=== PATIENT | male | born 1970 | race Caucasian/White ===

== ENCOUNTER 2019-10-26 03:11 | Emergency (ER) | payer OTHER, SELFPAY ==
[2019-10-26 03:12] VITALS: BP 169/93; PULSE 61; RESP 18; TEMP 36.7; O2SAT 93; BMI 31.6
--- NOTE | 2019-10-26 04:10 | ED.VIS.BACK ---
History of Present Illness Chief Complaint: Back Informant: Patient Onset: Days - 11 Context: Gradual Onset Timing: Continuous Quality: Sharp, Aching Location: Buttock, Left Leg Associated Symptoms: Numbness, Radiation to Left Leg Narrative: Patient is a 49-year-old male with history of diabetes and neuropathy presenting with worsening back pain. He states that the pain is in his left lower back and radiates down his left leg. He states it radiates behind his thigh and then down to his and foot. He notes he does have some paresthesias and numbness of his left foot. He also does have a history of neuropathy. Patient is having a hard time ambulating secondary to the pain. He is been taking ibuprofen 800 mg every 6 hours at home for pain. He denies any injury. He notes he woke up with some back pain and is just been worsening since then. Patient states the pain is worse when he is working. He denies any associated fever, chills, incontinence or current numbness in his groin region. He denies any other complaints. He denies any history of sciatica, cancer or IV drug use. Past Medical History - Allergies and Home Meds Allergies/Adverse Reactions: Allergies No Known Allergies Allergy (Verified 10/26/19 03:17) Primary Care Physician: Care Physician,No Primary [Primary Care Provider] - Past Medical History: - - Hypertension, diabetes mellitus Smoking Status: Current every day smoker Review of Systems General: Denies: Chills, Fever, Sweats Eyes: Denies: Visual changes - bilaterally, Diplopia ENT: Denies: Rhinorrhea, Sore throat Cardiovascular: Denies: Chest pain, Palpitations Respiratory: Denies: Dyspnea, Cough, Dyspnea on exertion Gastrointestinal: Denies: Abdominal pain, Nausea, Vomiting, Diarrhea, Melena, Hematochezia Genitourinary: Denies: Dysuria, Hematuria, Frequency Musculoskeletal: Reports: Back pain, Extremity Pain - left Skin: Denies: Rash, Wounds Neurological: Reports: Parasthesia - left foot, lower leg . Denies: Headache, Weakness, Numbness Physical Exam Vital Signs/Narrative: Vital Signs Temp Pulse Resp BP Pulse Ox 10/26/19 03:12 98.1 F 61 18 169/93 H 93 Inital Vital Signs reviewed: Yes General: Well nourished, Well developed Head: Normocephalic, Atraumatic Eyes: Perrl, EOMI ENT: Moist mucous membranes, No rhinorrhea Neck: Supple, Nontender Cardiovascular: Regular rate, Regular rhythm, No murmurs Respiratory: No distress, CTA bilaterally, Chest nontender Abdomen: Soft, Nontender, Nondistended, Normal bowel sounds. Negative for: No masses Back: Normal Inspection, Nontender, Positive SLR - Right, Positive SLR - Left. Negative for: Spinal tenderness, Paraspinal Tenderness, CVA tenderness Extremeties: Nontender, No edema, Strong Pulses, Symmetric. Negative for: Tenderness, Edema Skin: Normal color, No rash Neuro: Alert, Oriented, Normal Strength, Normal Sensation, Normal DTR, Normal Cerebellar. Negative for: Normal Gait - Antalgic gait, Weakness - Normal hip flexion, plantar and dorsiflexion Psychological: Normal affect Diagnostic/Tx/Re-eval - Medical Decision Making Patient is evaluated for atraumatic back pain. It is in his left lower back radiates down his leg. He has positive straight leg test bilaterally. I believe this is sciatica. He does not have any midline tenderness or red flag symptoms for cauda equina syndrome. Do not think emergent MRI or other imaging is indicated at this time. As patient drove himself here he cannot receive any sedating medications. Patient has already been taking ibuprofen at home. He is a diabetic so I do not want to give him prednisone. He will be started on a course of Flexeril in case there is an associated muscle spasm contributing to his pain. Patient is agreeable with this. He is given a prescription and it is filled in our pharmacy so he can take when he gets home. Patient is counseled the typical course of sciatica and his need to follow-up with a primary care doctor. He is counseled that he ultimately might require physical therapy and an MRI ordered by his PCP. Patient is counseled on signs and symptoms requiring return to the emergency room. Patient verbalizes agreement and understand this plan. Patient discharged home in stable and improved condition. ED Disposition - Plan for ED Patient: Disposition: Home or Assisted Living Diagnosis: Sciatica of left side Instructions: BACK PAIN w/ SCIATICA Prescriptions: cycloBENZAPRine HCl [Flexeril] 10 mg PO TID PRN #20 tab PRN Reason: Muscle Spasm Prescription Printed Referrals: Care Physician,No Primary [Primary Care Provider] - Additional Instructions: Please call your PCP to be seen in the next week or 2 for further evaluation of your back pain. Is possible that this might last for 6 weeks or more. Use moist heat for your back. Return if you develop new weakness of the legs, inability to walk or incontinence. Continue to take ibuprofen but only take 3 of the 200 mg at a time. You may also add in Tylenol.
[2019-10-26 04:21] VITALS: BP 154/69; PULSE 64; RESP 18; O2SAT 98
== END 2019-10-26 04:21 | disposition home or self-care (01) ==
PROVIDERS: Emergency Provider Emergency Medicine
DX: M54.42 Lumbago with sciatica, left side (principal); E11.40 Type 2 diabetes mellitus with diabetic neuropathy, unspecified; I10 Essential (primary) hypertension; F17.200 Nicotine dependence, unspecified, uncomplicated
CPT/HCPCS: 99282

== ENCOUNTER 2020-06-09 17:29 | Observation (INO) | payer OTHER, SELFPAY ==
[2020-06-09] VITALS (7 sets, daily range): BP systolic 150–166; BP diastolic 74–94; PULSE 84–94; RESP 16–20; TEMP 36.7–36.9; O2SAT 94–97; BMI 30.5; BMI 29.6
--- NOTE | 2020-06-09 17:42 | EKG12_ITS ---
Test Reason : Blood Pressure : / mmHG Vent. Rate : 092 BPM Atrial Rate : 092 BPM P-R Int : 168 ms QRS Dur : 094 ms QT Int : 376 ms P-R-T Axes : 049 046 028 degrees QTc Int : 464 ms Normal sinus rhythm Normal ECG Confirmed by JAMAL ORTEGA, PILY ([id number]), film editor MIRIAM CAI ([id number]) on 06/11/2020 2:40:05 PM Referred By: SUDHIR Confirmed By:FREDY BERRY MD
--- NOTE | 2020-06-09 17:46 | ED.VIS.GEN ---
History of Present Illness Chief Complaint: Chest Pain Informant: Patient Narrative: Patient is a 49-year-old male with a past medical history of diabetes, hypertension, hyperlipidemia who presents to the ED for chest pain and shortness of breath. This has been intermittent over the past week and a half. He currently rates the pain as a 3 out of 10. This is a tight sensation. It does radiate into his back but not into his arms or neck. Standing as well as exerting himself does make the pain worse. He has been taking ibuprofen which has not been giving him any relief. Denies any cough, cold, congestion. He is a current every day smoker. He denies any leg swelling or calf pain. No history of DVT/PE. No history of heart attacks. No abdominal pain or nausea/vomiting. No diaphoresis. Past Medical History - Allergies and Home Meds Allergies/Adverse Reactions: Allergies No Known Allergies Allergy (Verified 06/09/20 21:24) Prior records reviewed: Yes Past Medical History: - - Diabetes, hypertension, hyperlipidemia Smoking Status: Current every day smoker Alcohol: None Drugs: None - Family History Maternal Family History: Reports: Asthma, Diabetes Paternal Family History: Reports: - - Denies knowledge of paternal medical history. Review of Systems All systems negative except as indicated General: Denies: Chills, Fever, Sweats Eyes: Denies: Visual changes - bilaterally, Diplopia ENT: Denies: Rhinorrhea, Sore throat Cardiovascular: Reports: Chest pain. Denies: Palpitations Respiratory: Reports: Dyspnea, Dyspnea on exertion. Denies: Cough Gastrointestinal: Denies: Abdominal pain, Nausea, Vomiting, Diarrhea, Melena, Hematochezia Genitourinary: Denies: Dysuria Musculoskeletal: Reports: Back pain. Denies: Extremity Pain Skin: Denies: Rash, Wounds Neurological: Denies: Headache, Weakness, Numbness Physical Exam Vital Signs/Narrative: Vital Signs Temp Pulse Resp BP Pulse Ox 06/09/20 17:30 98.0 F 91 16 166/80 H 95 Inital Vital Signs reviewed: Yes General: Well nourished, Well developed, No Acute Distress Head: Normocephalic, Atraumatic Eyes: Perrl, EOMI ENT: Moist mucous membranes, No rhinorrhea Neck: Supple, Nontender Cardiovascular: Regular rate, Regular rhythm, No murmurs, - - 2+ radial pulse Respiratory: No distress, CTA bilaterally, Chest nontender Abdomen: Soft, Nontender, Nondistended, Normal bowel sounds Back: Nontender, Normal Inspection Extremities: Nontender, No edema. Negative for: Edema, Calf Tenderness Skin: Normal color, No rash Neurological: Alert, Oriented x3, Cranial nerves II-XII grossly intact, Normal Strength, Normal Sensation Psychological: Normal affect, Normal Mood Diagnostic/Tx/Re-eval - EKG Initial EKG Interpretation: - - Rate of 92 bpm and normal sinus rhythm. Normal intervals. Normal axis. No ST elevations or depressions appreciated. No T wave abnormalities. No prior EKG for comparison. - Medical Decision Making Patient presents to the ED for chest pain and shortness of breath. This is related to exertion. Nonreproducible on physical exam. EKG not show any signs of acute ischemia or arrhythmia. Initial troponin within normal limits. No acute abnormality on chest x-ray. He does have a heart score of 4 with his risk factors, age and story. He is given a dose of aspirin here in the ED. He is agreeable to staying in the hospital for further evaluation and management. He otherwise has been stable throughout ED stay. ED Disposition - Plan for ED Patient: Disposition: Acute Care [facility] Diagnosis: Chest pain, Dyspnea
[2020-06-09] MEDS: Aspirin 81 MG TAB.CHEW 324 MG PO (18:05)
[2020-06-09 18:15] LABS: Absolute Lymphocyte Count 3.15 X10^3/uL (0.83-4.51); Basophil# 0.06 X10^3/uL; Basophil% 0.5 % (0-1); Eosinophil# 0.27 X10^3/uL; Eosinophils% 2.4 % (0-5); Hematocrit 41.2 % (40-54); Hemoglobin 14.1 g/dL (13.0-16.5); Lymphocyte # 3.15 X10^3/ul (4.0); Lymphocyte % 27.6 % (19-41); Mean Corp Hgb Conc 34.2 g/dL (32-36); Mean Corpuscular Hgb 31.6 pg (27.0-32.0); Mean Corpuscular Volume 92.4 fL (80-94); Mean Platelet Vol. 9.2 fl (6.2-12.0); Monocyte# 0.77 X10^3/uL; Monocyte% 6.7 % (0-10); NRBC Flagged by Analyzer 0 % (0-5); Neutrophil # 7.01 X10^3/uL (2.7-7.7); Neutrophil % 61.5 % (47-70); Platelet Count 402 K/mm3 (150-450); RBC Distribution Width CV 12.5 % (11.6-14.6); RBC Distribution Width SD 42.8 fl (35.1-43.9); Red Blood Count 4.46 M/mm3 (4.6-6.2); White Blood Count 11.4 K/mm3 (4.4-11.0)
--- NOTE | 2020-06-09 18:30 | RAD_ITS ---
STUDY: X-RAY CHEST REASON FOR EXAM: Male, 49 years old. SOB X 1 WEEK TECHNIQUE: 2 frontal images of the chest were obtained. COMPARISON: 09/09/2015 FINDINGS: There is no new focal consolidation. There is a stable linear opacity within the left lower lung which may reflect focal atelectasis and/or scarring. The lungs remain hyperinflated. Normal size heart. Normal mediastinum and molina. Normal visualized pulmonary arteries. Normal visualized aortic arch and descending thoracic aorta. Normal visualized thoracic spine. Normal visualized ribs, clavicles, and shoulders. There is no demonstrated abnormality of the visualized soft tissue structures of the upper abdomen. RAD/Chest 1 View (Portable) IMPRESSION: Stable examination demonstrating no acute cardiopulmonary process. Electronically Signed: Virginie Ewing MD at 19:00 EDT Tel , Service support ,
[2020-06-09 18:39] LABS: Anion Gap 6 (5-15); BUN 19 mg/dL (7-18); BUN/Creat Ratio 18.4 RATIO (10-20); Calcium,Total 8.8 mg/dL (8.5-10.1); Chloride 103 mmol/L (98-107); Creatinine, Serum 1.03 mg/dL (0.70-1.30); EST Glomerular Filtration Rate 82 mL/min (>60); Est Glom Filt Rate - Afr Amer 99 mL/min (>60); Estimated Creatinine Clearance 96.27 ml/min; Glucose 132 mg/dL (74-106); Potassium 3.7 mmol/L (3.5-5.1); Sodium Level 134 mmol/L (136-145)
--- NOTE | 2020-06-09 19:28 | HP.PCM_ITS ---
Problem List (1) Exertional chest pain Status: Acute (2) Dyspnea Status: Acute History of Present Illness Date of Admission: 06/09/20 Chief Complaint: Chest pain The patient is a 49 year old M with a significant history of tobacco abuse; hypertension; asthma; hyperlipidemia; diabetes mellitus who presents emergency department with 1-1/2-week history of chest pain. His chest pain is episodic. However on the day of presentation his chest pain was constant. His chest pain worsens with exertion and improves with sitting and lying down. 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 He chest pain radiates to his upper back. His chest pain spun across his entire chest. He denies any nausea, vomiting or diaphoresis. He reports mild shortness of breath with his chest pain. Past Medical History Medical History: Medical History (Last Reviewed 06/09/20 @ 20:[address] Dougie Merrill MD) Diabetes E11.9 Hyperlipidemia E78.5 Hypertension I10 Allergies No Known Allergies Allergy (Verified 06/09/20 17:30) Home Medications: Ambulatory Orders Medication Instructions Recorded Albuterol Inhaler [Ventolin Hfa 1 - 2 puff INHALATION Q4H PRN PRN 09/08/15 (SP)] Atorvastatin Calcium 80 mg PO DAILY 10/26/19 Gabapentin [Neurontin] 300 mg PO TID 10/26/19 Lisinopril [Prinivil] 10 mg PO DAILY 10/26/19 Metformin HCl 1,000 mg PO BID 10/26/19 Budesonide/Formoterol Fumarate 2 puff PO DAILY 06/09/20 [Symbicort 80-4.5 Mcg Inhaler] Bupropion HCl [Bupropion HCl Sr] 150 mg PO DAILY 06/09/20 Glimepiride 4 mg PO DAILY 06/09/20 Surgical History: no surgical history Smoking Status: Current every day smoker Tobacco Use: Cigarettes Alcohol: None Drugs: None - *Family History Maternal History Items: Asthma, Diabetes Paternal History Items: - - Denies knowledge of paternal medical history. Review of Systems Constitutional: Denies: Chills, Fever, Weight Change HEENT: Denies: Head Aches, Sinus Congestion, Sinus Drainage Cardiovascular: Reports: Chest Pain. Denies: Palpitations Respiratory: Reports: Shortness of Breath. Denies: Cough, Shortness of breath at rest, Sputum production Gastrointestinal: Denies: Abdominal Pain, Nausea, Vomiting Genitourinary: Denies: Dysuria Musculoskeletal: Reports: Back Pain. Denies: Joint Pain, Joint Tenderness Skin: Denies: Rash, Wounds Neurological: Denies: Numbness, Tingling, Focal weakness Psychiatric: Denies: Anxiety, Depression, Homicidal Ideations, Suicidal Ideations Hematologic/ Lymphatic: Denies: Easy Bruising, Easy Bleeding VTE Information - Inpt Only VTE Present on Admission: No VTE Mechan Device Prophylaxis: SCD's VTE Pharm Prophylaxis ordered?: No Patient Problems: Active and Suspected Problems (Last Reviewed 06/09/20 @ 20:[address] Dougie Merrill MD) Exertional chest pain (Acute) Dyspnea (Acute) - Physical Exam Vitals/I&O's: Vital Signs Temp Pulse Resp BP Pulse Ox 98.0 F 94 18 157/92 H 96 06/09/20 17:30 06/09/20 18:06 06/09/20 18:06 06/09/20 18:06 06/09/20 18:06 Oxygen Delivery Method Room Air Weight: 102.058 kg Body Mass Index (BMI) 30.5 General: Alert, Oriented x3, Cooperative HEENT: Atraumatic, PERRLA, EOMI, Normocephalic Neck: Supple, No JVD, Negative Carotid Bruits Lungs: Clear to auscultation, Normal air movement Cardiovascular: Regular rate, No murmurs Abdomen: Bowel Sounds Present, Soft, Non Tender Extremities: No edema, Capillary Refill Less than 3 Seconds Skin: No rashes, No breakdown Musculoskeletal: No Tenderness to Palpation of Joints or Extremities Neurological: Cranial nerves II-XII grossly intact Psych/Mental Status: Normal Affect, Appropriate Laboratory Results 06/09/20 17:55: WBC 11.4 H, RBC 4.46 L, Hgb 14.1, Hct 41.2, MCV 92.4, MCH 31.6, MCHC 34.2, RDW Std Deviation 42.8, RDW Coeff of Michele 12.5, Plt Count 402, MPV 9.2, Immature Gran % (Auto) 1.300 H, Neut % (Auto) 61.5, Lymph % (Auto) 27.6, [place] % (Auto) 6.7, Eos % (Auto) 2.4, Baso % (Auto) 0.5, Absolute Neuts (auto) 7.0, Absolute Lymphs (auto) 3.15, Nucleated RBC % 0 06/09/20 17:55: Sodium 134 L, Potassium 3.7, Chloride 103, Carbon Dioxide 25.0, Anion Gap 6, BUN 19 H, Creatinine 1.03, Estim Creat Clear Calc 96.27, Est GFR (MDRD) Af Amer 99, Est GFR (MDRD) Non-Af 82, BUN/Creatinine Ratio 18.4, Glucose 132 H, Calcium 8.8, Magnesium 2.0, Troponin I < 0.015 Assessment/Plan All Active Problems (Last Reviewed 06/09/20 @ 20:[address] Dougie Merrill MD) Exertional chest pain (Acute) Dyspnea (Acute) The patient is a 49 year old M with a significant history of tobacco abuse; hypertension; hyperlipidemia; diabetes mellitus who presents emergency department with 1-1/2-week history of exertional chest pain and shortness of breath. Chest pain and shortness of breath Place on a monitored bed at PCU Actual CXR image was independently visualized. No acute cardiopulmonary process was noted. Actual EKG tracing was independently visualized. EKG tracing showed sinus rhythm with no ST or T wave abnormalities. Received aspirin 324 mg at emergency department. ASA 81 mg p.o. daily ordered SL NTG 0.4 mg prn as needed for chest pain ordered Morphine as needed for pain ordered We will check lipid panel. Statin: Home 80 mg atorvastatin daily continued Initial troponin was negative. Serial cardiac enzymes ordered Stat EKG as needed for chest pain Treadmill stress test in the AM if the cardiac enzymes are negative Diabetes mellitus Patient with mild hyperglycemia on presentation. Patient will be n.p.o. for stress test. While n.p.o. we will de-escalate dose of glimepiride and put on correction scale insulin. Hold home metformin. Asthma On home ICS?lab. Therapeutic interchange with a Maddie and Pulmicort. Albuterol PRN. PRN albuterol. His shortness of breath could be due to his asthma. Patient does not appear to be in exacerbation. Neuropathy Gabapentin continued Leukocytosis Patient with mild leukocytosis; and bandemia Likely reactive Trend. DVT prophylaxis SCD while planning for cardiac work up for chest pain OBSV E&M: 32520 Initial observation care L3
--- NOTE | 2020-06-09 20:36 | ED.RN ---
PT refuses to stay in bed or keep telemetry leads on.
--- NOTE | 2020-06-09 20:57 | EKG12_ITS ---
Test Reason : CP ADMIT Blood Pressure : / mmHG Vent. Rate : 083 BPM Atrial Rate : 083 BPM P-R Int : 182 ms QRS Dur : 092 ms QT Int : 390 ms P-R-T Axes : 051 044 024 degrees QTc Int : 458 ms Normal sinus rhythm Normal ECG Confirmed by KIRAN ORTEGA, CONSUELO ([id number]), legal editor VENKAT BARBOUR ([id number]) on 06/16/2020 1:16:41 PM Referred By: NATY Confirmed By:CONSUELO BECK MD
[2020-06-09] MEDS: Acetaminophen 325 MG Tablet 650 MG PO (21:09)
[2020-06-09] MEDS: Atorvastatin Calcium 80 MG Tablet PO (21:24)
[2020-06-09] MEDS: Gabapentin 300 MG Capsule PO (21:24)
[2020-06-09 23:26] LABS: Bedside Glucose 155 mg/dL (70-110)
[2020-06-10] VITALS (9 sets, daily range): BP systolic 121–144; BP diastolic 73–89; PULSE 71–93; RESP 15–18; TEMP 36.3–36.7; O2SAT 96–98
[2020-06-10 05:57] LABS: Absolute Lymphocyte Count 3.25 X10^3/uL (0.83-4.51); Absolute Neutrophil Count 6.5 X10^3/uL (2.0-7.7); Basophil# 0.07 X10^3/uL; Basophil% 0.6 % (0-1); Eosinophil# 0.27 X10^3/uL; Eosinophils% 2.5 % (0-5); Hematocrit 43.1 % (40-54); Hemoglobin 14.6 g/dL (13.0-16.5); Lymphocyte # 3.25 X10^3/ul (4.0); Lymphocyte % 29.6 % (19-41); Mean Corp Hgb Conc 33.9 g/dL (32-36); Mean Corpuscular Hgb 31.7 pg (27.0-32.0); Mean Corpuscular Volume 93.7 fL (80-94); Mean Platelet Vol. 9.1 fl (6.2-12.0); Monocyte% 7.3 % (0-10); NRBC Flagged by Analyzer 0 % (0-5); Neutrophil # 6.46 X10^3/uL (2.7-7.7); Neutrophil % 58.9 % (47-70); Platelet Count 361 K/mm3 (150-450); RBC Distribution Width CV 12.4 % (11.6-14.6); RBC Distribution Width SD 42.7 fl (35.1-43.9)
[2020-06-10] MEDS: Acetaminophen 325 MG Tablet 650 MG PO ×2 (06:05→13:12)
[2020-06-10] MEDS: Gabapentin 300 MG Capsule PO ×2 (06:05→13:11)
[2020-06-10] MEDS: Aspirin E.C. 81 MG Tablet PO (06:05)
[2020-06-10] MEDS: Lisinopril 10 MG Tablet PO (06:05)
[2020-06-10 06:16] LABS: Bedside Glucose 155 mg/dL (70-110)
[2020-06-10 06:21] LABS: Anion Gap 6 (5-15); BUN 18 mg/dL (7-18); BUN/Creat Ratio 18.9 RATIO (10-20); Calcium,Total 8.5 mg/dL (8.5-10.1); Chloride 105 mmol/L (98-107); Cholesterol 157 mg/dL (200); Creatinine, Serum 0.95 mg/dL (0.70-1.30); EST Glomerular Filtration Rate 89 mL/min (>60); Est Glom Filt Rate - Afr Amer 108 mL/min (>60); Estimated Creatinine Clearance 104.37 ml/min; Glucose 143 mg/dL (74-106); High Density Lipoprotein 39 mg/dL; Potassium 3.9 mmol/L (3.5-5.1); Sodium Level 136 mmol/L (136-145); Triglycerides 297 mg/dL; Very Low Density Lipoprotein 59 mg/dL (5-40)
[2020-06-10] MEDS: Budesonide Respules 0.5 MG/2 ML AMPUL.NEB. INHALATION (07:17)
[2020-06-10] MEDS: Albuterol 2.5 MG/3 ML VIAL.NEB. INHALATION ×2 (07:17→13:20)
--- NOTE | 2020-06-10 09:40 | PCA ---
pt off floor
[2020-06-10] MEDS: Glimepiride 2 MG Tablet PO (09:51)
[2020-06-10] MEDS: buPROPion (XL) 150 MG TABLET.XL PO (09:51)
--- NOTE | 2020-06-10 13:21 | STRESSREP ---
Stress Test Report Date: 06/10/20 Procedure: Exercise tolerance test/imaging study Indications: [chest pain] Consent: Per the patient Procedure: The patient exercised on a Stephen protocol for [7 minutes] achieving a peak heart rate of [153] bpm ([88]% predicted maximal heart rate) with a peak blood pressure [158/62] mmHg and a peak MET capacity of [8.5] METs. The baseline ECG demonstrated [normal sinus rhythm]. The peak exercise ECG demonstrated [no significant ischemic changes]. EKG during recovery revealed no significant ischemic changes. [There were no cardiac dysrhythmias pretest, during exercise, or recovery]. The functional capacity was considered decreased for age. There was [no complaint of chest discomfort during exercise or recovery]. The examination was discontinued secondary to fatigue. Impression: 1. Technically adequate (percent predicted maximal heart rate greater than 85%) exercise tolerance test 2. Stress test is negative for exercise-induced EKG changes of ischemia 3. The test test is negative for exercise-induced chest pain 4. Functional capacity is decreased for age 5. Nuclear images pending Myocardial perfusion imaging study: Technique: The patient was injected with 11.9 mCi of technetium 99m Cardiolite and subsequently rest SPECT Cardiolite nuclear imaging was obtained in the horizontal long, vertical long, and short axis views. The patient exercised on a Stephen protocol. Please see above for details. The patient was injected with 34.8 mCi of technetium 99m Cardiolite and subsequently stress SPECT Cardiolite nuclear imaging was obtained in the horizontal long, vertical long, and short axis views. A gated Cardiolite study at peak stress was obtained. Interpretation: Rest and stress SPECT Cardiolite nuclear imaging status post realignment, normalization, and attenuation correction, demonstrates overall mildly decreased radioisotope uptake in the inferior wall prior to attenuation correction. After attenuation correction there is normal myocardial radioisotope uptake. These findings are suggestive of diaphragmatic attenuation artifact. The gated Cardiolite study demonstrates no significant regional wall motion abnormalities. The reported LVEF is 70 %. Impression: 1. There is no evidence of significant ischemia or infarction. 2. The gated Cardiolite study reports an LVEF of 70 %. This note was generated with [employer] ([employer]ation software. It may contain incorrect words, spelling, and punctuation that were not noted in checking the note before signing.
--- NOTE | 2020-06-10 13:49 | DCINST_ITS ---
- Discharge Diagnoses Current Active Problems: Current Active and Chronic Problems (Last Reviewed 06/09/20 @ 20:[address] Dougie Merrill MD) Exertional chest pain (Acute) Dyspnea (Acute) Chest pain (Acute) You will use the following diet at home:: Cardiac Your food should be the consistency of: Regular Your liquids should be the consistency of: Regular/Thin Discharge Activity: Return to Normal Activity Call your doctor if you observe: Chest pain Allergies/Adverse Reactions: Allergies No Known Allergies Allergy (Verified 06/09/20 21:24) Medications to take at Discharge Albuterol Inhaler [Ventolin Hfa] 1 - 2 puff INHALATION Q4H PRN PRN 09/08/15 Atorvastatin Calcium 80 mg PO DAILY 10/26/19 Gabapentin [Neurontin] 300 mg PO TID 10/26/19 Lisinopril [Prinivil] 10 mg PO DAILY 10/26/19 Metformin HCl 1,000 mg PO BID 10/26/19 Budesonide/Formoterol Fumarate [Symbicort 80-4.5 Mcg Inhaler] 2 puff PO DAILY 06/09/20 Bupropion HCl [Bupropion HCl Sr] 150 mg PO DAILY 06/09/20 Glimepiride 4 mg PO DAILY 06/09/20 Primary Care Physician: Manav Hobbs DO [Primary Care Provider] - Please follow up with your Primary Care Physician in: 1 week Test Results: Test results from this visit will be discussed in further detail at your follow- up appointment, if applicable. Proposed Discharge Date: 06/10/20
--- NOTE | 2020-06-10 13:54 | PCM.DC.SUM ---
<Calvin Anders - Last Filed: 06/10/20 13:54> Discharge Date and Diagnosis - Problem List Patient Problems: Active and Suspected Problems (Last Reviewed 06/09/20 @ 20:[address] Dougie Merrill MD) Exertional chest pain (Acute) Dyspnea (Acute) Chest pain (Acute) Date of Admission: 06/09/20 Date of Discharge: 06/10/20 - Primary Discharge Diagnosis Acute Problems: Active Problems (Last Reviewed 06/09/20 @ 20:[address] Dougie Merrill MD) Chest pain, musculoskeletal Hospital Course and Treatment Imaging Results: 06/10/20 05:55 Nuclear Stress Test - Treadmil [NM] AM (NON MEDS) Interpretation: Rest and stress SPECT Cardiolite nuclear imaging status post realignment, normalization, and attenuation correction, demonstrates overall mildly decreased radioisotope uptake in the inferior wall prior to attenuation correction. After attenuation correction there is normal myocardial radioisotope uptake. These findings are suggestive of diaphragmatic attenuation artifact. The gated Cardiolite study demonstrates no significant regional wall motion abnormalities. The reported LVEF is 70 %. Impression: 1. There is no evidence of significant ischemia or infarction. 2. The gated Cardiolite study reports an LVEF of 70 %. RAD/Chest 1 View (Portable) IMPRESSION: Stable examination demonstrating no acute cardiopulmonary process. Operations: None Procedures: Stress test Summary of Care Provided: Hospital course: The patient is a 49 year old M with pmhx of htn, hld, nicotine abuse, DMt2, asthma, who presented to the ER with c/o chest pain that was episodic for about a week and a half described as midsternal radiating into the back. In the ER had had negative troponin, negative EKG, negative CXR. He was admitted to the PCU, troponins were cycled and remained negative and stress test was performed the following day which was negative. He was discharged home in stable condition and will need follow up with his PCP in 1 week. This patient was seen by Calvin Anders PA-C under the supervision of Doctor Dale. [] Patient Problems: Active and Suspected Problems (Last Reviewed 06/09/20 @ 20:[address] Dougie Merrill MD) Exertional chest pain (Acute) Dyspnea (Acute) Chest pain (Acute) - Physical Exam Vitals/I&O's: Vital Signs Temp Pulse Resp BP Pulse Ox 98.1 F 88 18 129/78 H 98 06/10/20 09:45 06/10/20 13:21 06/10/20 13:21 06/10/20 09:45 06/10/20 13:20 Oxygen Delivery Method Room Air Weight: 218 lb 11.177 oz Body Mass Index (BMI) 29.6 Intake and Output for Last 24 Hours 06/08/20 06/09/20 06/10/20 23:59 23:59 23:59 Intake Total 120 / 120 650 / 650 Balance 120 / 120 650 / 650 General: Alert, Oriented x3, Cooperative HEENT: Atraumatic, PERRLA, EOMI, Normocephalic Neck: Supple, No JVD, Negative Carotid Bruits Lungs: Clear to auscultation, Normal air movement Cardiovascular: Regular rate, No murmurs Abdomen: Bowel Sounds Present, Soft, Non Tender Extremities: No edema, Capillary Refill Less than 3 Seconds Skin: No rashes, No breakdown Musculoskeletal: No Tenderness to Palpation of Joints or Extremities Neurological: Cranial nerves II-XII grossly intact Psych/Mental Status: Normal Affect, Appropriate, Alert and oriented to time, place, person, mood and affect Laboratory Results 06/09/20 17:55: WBC 11.4 H, RBC 4.46 L, Hgb 14.1, Hct 41.2, MCV 92.4, MCH 31.6, MCHC 34.2, RDW Std Deviation 42.8, RDW Coeff of Michele 12.5, Plt Count 402, MPV 9.2, Immature Gran % (Auto) 1.300 H, Neut % (Auto) 61.5, Lymph % (Auto) 27.6, [place] % (Auto) 6.7, Eos % (Auto) 2.4, Baso % (Auto) 0.5, Absolute Neuts (auto) 7.0, Absolute Lymphs (auto) 3.15, Nucleated RBC % 0 06/09/20 17:55: Sodium 134 L, Potassium 3.7, Chloride 103, Carbon Dioxide 25.0, Anion Gap 6, BUN 19 H, Creatinine 1.03, Estim Creat Clear Calc 96.27, Est GFR (MDRD) Af Amer 99, Est GFR (MDRD) Non-Af 82, BUN/Creatinine Ratio 18.4, Glucose 132 H, Calcium 8.8, Magnesium 2.0, Troponin I < 0.015 06/09/20 22:20: Troponin I < 0.015 06/09/20 23:17: POC Glucose 155 H 06/09/20 23:45: Troponin I < 0.015 06/10/20 05:40: Sodium 136, Potassium 3.9, Chloride 105, Carbon Dioxide 25.0, Anion Gap 6, BUN 18, Creatinine 0.95, Estim Creat Clear Calc 104.37, Est GFR (MDRD) Af Amer 108, Est GFR (MDRD) Non-Af 89, BUN/Creatinine Ratio 18.9, Glucose 143 H, Calcium 8.5, Triglycerides 297 H, Cholesterol 157, LDL Cholesterol 59, VLDL Cholesterol 59 H, HDL Cholesterol 39 L 06/10/20 05:40: WBC 11.0, RBC 4.60, Hgb 14.6, Hct 43.1, MCV 93.7, MCH 31.7, MCHC 33.9, RDW Std Deviation 42.7, RDW Coeff of Michele 12.4, Plt Count 361, MPV 9.1, Immature Gran % (Auto) 1.100 H, Neut % (Auto) 58.9, Lymph % (Auto) 29.6, [place] % (Auto) 7.3, Eos % (Auto) 2.5, Baso % (Auto) 0.6, Absolute Neuts (auto) 6.5, Absolute Lymphs (auto) 3.25, Nucleated RBC % 0 06/10/20 06:07: POC Glucose 155 H Current Medications Acetaminophen (Tylenol) 650 mg PO Q6H PRN PRN PRN Reason: Pain Score 1-10/Temp > 100.7 F Last Admin: 06/10/20 13:12 Dose: 650 mg Documented by: Albuterol Sulfate (Ventolin Aerosols) 2.5 mg INHALATION Q2H PRN PRN PRN Reason: SOB/Wheezing Albuterol Sulfate (Ventolin Aerosols) 2.5 mg INHALATION Q6HWA.RT [facility] Last Admin: 06/10/20 13:20 Dose: 2.5 mg Documented by: Aspirin (Ecotrin) 81 mg PO DAILY@0800 [facility] Last Admin: 06/10/20 06:05 Dose: 81 mg Documented by: Atorvastatin Calcium (Lipitor) 80 mg PO DAILY@2200 [facility] Last Admin: 06/09/20 21:24 Dose: 80 mg Documented by: Budesonide (Pulmicort Aerosol) 0.5 mg INHALATION Q12H.RT [facility] Last Admin: 06/10/20 07:17 Dose: 0.5 mg Documented by: Bupropion HCl (Wellbutrin Xl) 150 mg PO DAILY [facility] Last Admin: 06/10/20 09:51 Dose: 150 mg Documented by: Dextrose (D50w Syringe) 0 gm IV X1 PRN; Protocol PRN Reason: Hypoglycemia Gabapentin (Neurontin) 300 mg PO TID [facility] Last Admin: 06/10/20 13:11 Dose: 300 mg Documented by: Glimepiride (Amaryl) 2 mg PO DAILYCM [facility] Last Admin: 06/10/20 09:51 Dose: 2 mg Documented by: Glucagon () 1 mg IM .X1 PRN PRN Reason: Hypoglycemia Insulin Human Lispro (Humalog Kwikpen (Bkc)) 0 unit SC Q6 [facility]; Protocol Last Admin: 06/10/20 13:10 Dose: Not Given Documented by: Lisinopril (Zestril) 10 mg PO DAILY [facility] Last Admin: 06/10/20 06:05 Dose: 10 mg Documented by: Melatonin (Melatonin) 3 mg PO QHS PRN PRN PRN Reason: INSOMNIA Nitroglycerin (Nitrostat) 0.4 mg SUBLINGUAL Q5M PRN PRN Reason: CHEST PAIN Ondansetron HCl (Zofran) 4 mg IV Q8H PRN PRN PRN Reason: NAUSEA/VOMITING Sodium Chloride () 10 - 40 ml IV UD PRN PRN Reason: SALINE FLUSH Discharge Diet: Low fat/ Low Cholesterol, 2000 mg Sodium Diet Discharge Activity: Return to Normal Activity Call your doctor if you observe: Chest pain Home Medications: Medications to take at Discharge Albuterol Inhaler [Ventolin Hfa] 1 - 2 puff INHALATION Q4H PRN PRN 09/08/15 Atorvastatin Calcium 80 mg PO DAILY 10/26/19 Gabapentin [Neurontin] 300 mg PO TID 10/26/19 Lisinopril [Prinivil] 10 mg PO DAILY 10/26/19 Metformin HCl 1,000 mg PO BID 10/26/19 Budesonide/Formoterol Fumarate [Symbicort 80-4.5 Mcg Inhaler] 2 puff PO DAILY 06/09/20 Bupropion HCl [Bupropion HCl Sr] 150 mg PO DAILY 06/09/20 Glimepiride 4 mg PO DAILY 06/09/20 Albuterol IH (ProAir) [Proair Hfa] 1 puff INHALATION Q6H PRN PRN #1 inhaler 06/10/20 Following Prescriptions Were Given to Patient: Albuterol IH (ProAir) [Proair Hfa] 1 puff INHALATION Q6H PRN PRN #1 inhaler PRN Reason: Sob &/Or Wheezing Transmission Status: Received by [facility] Primary Care Physician: Manav Hobbs DO [Primary Care Provider] - Please follow up with your Primary Care Physician in: 1 week Disposition: Home Minutes spent on discharge:: 35 Patient Condition:: Stable Medical Necessity - Tobacco Use Smoking Status: Current every day smoker Tobacco Use: Cigarettes Meaningful Use Info Meaningful Use Diagnoses (Choose all that apply): None applicable <Chad Dale - Last Filed: 06/10/20 15:01> Discharge Date and Diagnosis - Primary Discharge Diagnosis Acute Problems: Active Problems (Last Reviewed 06/09/20 @ 20:[address] Dougie Merrill MD) Exertional chest pain (Acute) Dyspnea (Acute) Chest pain (Acute) Hospital Course and Treatment Imaging Results: 06/10/20 05:55 Nuclear Stress Test - Treadmil [NM] AM (NON MEDS) Summary of Care Provided: The patient is a 49 year old M [] - Physical Exam Vitals/I&O's: Vital Signs Temp Pulse Resp BP Pulse Ox 98.1 F 88 18 129/78 H 98 06/10/20 09:45 06/10/20 13:21 06/10/20 13:21 06/10/20 09:45 06/10/20 13:20 Oxygen Delivery Method Room Air Weight: 218 lb 11.177 oz Body Mass Index (BMI) 29.6 Intake and Output for Last 24 Hours 06/08/20 06/09/20 06/10/20 23:59 23:59 23:59 Intake Total 120 / 120 650 / 650 Balance 120 / 120 650 / 650 Laboratory Results 06/09/20 17:55: WBC 11.4 H, RBC 4.46 L, Hgb 14.1, Hct 41.2, MCV 92.4, MCH 31.6, MCHC 34.2, RDW Std Deviation 42.8, RDW Coeff of Michele 12.5, Plt Count 402, MPV 9.2, Immature Gran % (Auto) 1.300 H, Neut % (Auto) 61.5, Lymph % (Auto) 27.6, [place] % (Auto) 6.7, Eos % (Auto) 2.4, Baso % (Auto) 0.5, Absolute Neuts (auto) 7.0, Absolute Lymphs (auto) 3.15, Nucleated RBC % 0 06/09/20 17:55: Sodium 134 L, Potassium 3.7, Chloride 103, Carbon Dioxide 25.0, Anion Gap 6, BUN 19 H, Creatinine 1.03, Estim Creat Clear Calc 96.27, Est GFR (MDRD) Af Amer 99, Est GFR (MDRD) Non-Af 82, BUN/Creatinine Ratio 18.4, Glucose 132 H, Calcium 8.8, Magnesium 2.0, Troponin I < 0.015 06/09/20 22:20: Troponin I < 0.015 06/09/20 23:17: POC Glucose 155 H 06/09/20 23:45: Troponin I < 0.015 06/10/20 05:40: Sodium 136, Potassium 3.9, Chloride 105, Carbon Dioxide 25.0, Anion Gap 6, BUN 18, Creatinine 0.95, Estim Creat Clear Calc 104.37, Est GFR (MDRD) Af Amer 108, Est GFR (MDRD) Non-Af 89, BUN/Creatinine Ratio 18.9, Glucose 143 H, Calcium 8.5, Triglycerides 297 H, Cholesterol 157, LDL Cholesterol 59, VLDL Cholesterol 59 H, HDL Cholesterol 39 L 06/10/20 05:40: WBC 11.0, RBC 4.60, Hgb 14.6, Hct 43.1, MCV 93.7, MCH 31.7, MCHC 33.9, RDW Std Deviation 42.7, RDW Coeff of Michele 12.4, Plt Count 361, MPV 9.1, Immature Gran % (Auto) 1.100 H, Neut % (Auto) 58.9, Lymph % (Auto) 29.6, [place] % (Auto) 7.3, Eos % (Auto) 2.5, Baso % (Auto) 0.6, Absolute Neuts (auto) 6.5, Absolute Lymphs (auto) 3.25, Nucleated RBC % 0 06/10/20 06:07: POC Glucose 155 H Current Medications Acetaminophen (Tylenol) 650 mg PO Q6H PRN PRN PRN Reason: Pain Score 1-10/Temp > 100.7 F Last Admin: 06/10/20 13:12 Dose: 650 mg Documented by: Albuterol Sulfate (Ventolin Aerosols) 2.5 mg INHALATION Q2H PRN PRN PRN Reason: SOB/Wheezing Albuterol Sulfate (Ventolin Aerosols) 2.5 mg INHALATION Q6HWA.RT [facility] Last Admin: 06/10/20 13:20 Dose: 2.5 mg Documented by: Aspirin (Ecotrin) 81 mg PO DAILY@0800 [facility] Last Admin: 06/10/20 06:05 Dose: 81 mg Documented by: Atorvastatin Calcium (Lipitor) 80 mg PO DAILY@2200 [facility] Last Admin: 06/09/20 21:24 Dose: 80 mg Documented by: Budesonide (Pulmicort Aerosol) 0.5 mg INHALATION Q12H.RT [facility] Last Admin: 06/10/20 07:17 Dose: 0.5 mg Documented by: Bupropion HCl (Wellbutrin Xl) 150 mg PO DAILY [facility] Last Admin: 06/10/20 09:51 Dose: 150 mg Documented by: Dextrose (D50w Syringe) 0 gm IV X1 PRN; Protocol PRN Reason: Hypoglycemia Gabapentin (Neurontin) 300 mg PO TID [facility] Last Admin: 06/10/20 13:11 Dose: 300 mg Documented by: Glimepiride (Amaryl) 2 mg PO DAILYCM [facility] Last Admin: 06/10/20 09:51 Dose: 2 mg Documented by: Glucagon () 1 mg IM .X1 PRN PRN Reason: Hypoglycemia Insulin Human Lispro (Humalog Kwikpen (Bkc)) 0 unit SC Q6 [facility]; Protocol Last Admin: 06/10/20 13:10 Dose: Not Given Documented by: Lisinopril (Zestril) 10 mg PO DAILY [facility] Last Admin: 06/10/20 06:05 Dose: 10 mg Documented by: Melatonin (Melatonin) 3 mg PO QHS PRN PRN PRN Reason: INSOMNIA Nitroglycerin (Nitrostat) 0.4 mg SUBLINGUAL Q5M PRN PRN Reason: CHEST PAIN Ondansetron HCl (Zofran) 4 mg IV Q8H PRN PRN PRN Reason: NAUSEA/VOMITING Sodium Chloride () 10 - 40 ml IV UD PRN PRN Reason: SALINE FLUSH Addendum: Dr. Dale I personally examined the patient and reviewed the chart. I agree with the above. 49-year-old male with a history of tobacco abuse, and hypertension presents with chest pain has been going on for about a week and a half prior to admission. Initially was intermittent and then it became constant. His chest pain was substernal with no radiation to his arm or jaw. He had 3 normal troponins, and a stress test which was adequate, was negative for any type of ischemia both the imaging and in the EKG. He states that his chest pain has resolved at the moment. But he does not notice it in the makes it better or worse. He denies any shortness of breath, no lower extremity edema or calf pain. In his upper extremity pulses are equal. Since he is feeling better, and his stress test was unremarkable, I discussed with him the plan for discharge today and he expressed understanding of the risks and benefits of going home. He does need to follow-up with his PCP for further outpatient testing if necessary. OBSV E&M: 79598 Observation care discharge
--- NOTE | 2020-06-10 14:42 | PHA.DC.MC ---
Addendum entered and electronically signed by Kiara Salcedo 06/10/20 14:44: Note: Duplicate albuterol inhaler clarified, old order removed from home medlist. Original Note: Pharmacy Service has performed discharge medication reconciliation and counseling for this patient. The patient was counseled on the following discharge medications and changes in medications for homegoing were reviewed. 1. PROAIR INHALER - Also discussed breathing techniques for use of inhaler to sync up with med administration The Reason for Use, instructions for use, and potential side effects were reviewed for all new medications. The patient's questions regarding all of their medications were answered. The patient was able to verbally demonstrate an understanding of their discharge medications. Home Medications Albuterol Inhaler [Ventolin Hfa] 1 - 2 puff INHALATION Q4H PRN PRN 09/08/15 Atorvastatin Calcium 80 mg PO DAILY 10/26/19 Gabapentin [Neurontin] 300 mg PO TID 10/26/19 Lisinopril [Prinivil] 10 mg PO DAILY 10/26/19 Metformin HCl 1,000 mg PO BID 10/26/19 Budesonide/Formoterol Fumarate [Symbicort 80-4.5 Mcg Inhaler] 2 puff PO DAILY 06/09/20 Bupropion HCl [Bupropion HCl Sr] 150 mg PO DAILY 06/09/20 Glimepiride 4 mg PO DAILY 06/09/20 Albuterol IH (ProAir) [Proair Hfa] 1 puff INHALATION Q6H PRN PRN #1 inhaler 06/10/20 The patient's discharge medication list was reviewed for discrepancies and discrepancies were resolved.
[2020-06-10 15:31] LABS: Bedside Glucose 155 mg/dL (70-110)
--- NOTE | 2020-06-10 15:58 | NURSING ---
reviewed dc instructions with patient and
== END 2020-06-10 13:53 | disposition home or self-care (01) ==
LOC: ED 18:06 → PCU 19:55
PROVIDERS: Admitting Provider Hospitalist; Emergency Provider Emergency Medicine; PCP Student in an Organized Health Care Education/Training Program; Visit Provider Family Medicine
DX: R07.2 Precordial pain (principal); R06.00 Dyspnea, unspecified; E78.5 Hyperlipidemia, unspecified; I10 Essential (primary) hypertension; E11.42 Type 2 diabetes mellitus with diabetic polyneuropathy; E11.65 Type 2 diabetes mellitus with hyperglycemia; J45.909 Unspecified asthma, uncomplicated; F17.210 Nicotine dependence, cigarettes, uncomplicated; Z79.899 Other long term (current) drug therapy; Z79.84 Long term (current) use of oral hypoglycemic drugs; Z79.51 Long term (current) use of inhaled steroids
CPT/HCPCS: 36415; 71045; 78452; 80048; 80061; 82962; 83735; 84484; 85025; 93005; 93017; 94640; 99218; 99284; 99406; A9500; A4216; G0378

== ENCOUNTER → 2024-09-24 | Outpatient (CLI) | payer BC, SELFPAY | END | disposition home or self-care (01) | LOC: LABSPEC 15:14 | PROVIDERS: PCP Student in an Organized Health Care Education/Training Program; Referring Provider Otolaryngology; Visit Provider Otolaryngology | DX: J32.9 Chronic sinusitis, unspecified (principal) | CPT/HCPCS: 87070; 87077; 87186; 87205 ==

== ENCOUNTER → 2024-10-14 | Outpatient (CLI) | payer BC, SELFPAY ==
--- NOTE | 2024-10-14 16:39 | CT_ITS ---
ACR Level 3 findings have been noted. An addendum which confirms receipt of the report will follow. INDICATION: SINUSITIS EXAMINATION/TECHNIQUE: X-RAY - CT Maxillofacial W/O Contrast Injection A radiation dose optimization technique was used for this scan. RADIATION DOSAGE (If Supplied By Facility): CTDIvol/DLP = ( 33.06 ) / ( 846.25 ) mGy/mGycm COMPARISON: None. Findings: Noncontrast serial CT axial images of the facial bones with coronal and sagittal reformatted series. OSSEOUS STRUCTURES: There is a large 6 x 3 x 4 cm (craniocaudal) expansile soft tissue mass with extensive bony destruction of the posterior ethmoid, sphenoid and posterior maxillary bones. This soft tissue component appears to extend to the posterior margin of the sella. No TMJ subluxation. Bilateral maxillary sinus nodular mucosal thickening. Severe central bony spinal canal stenosis at the C3-C4 level secondary to posterior disc osteophyte formation and retrolisthesis of C3 on C4 of approximately 5 mm with apparent cord impingement. ORBITS: No obvious acute globe abnormality. No infiltration the orbital fat. REMAINING SOFT TISSUES: No definite adenopathy. CT/Sinus/Facial Bone IMPRESSION: Large 6 cm soft tissue mass of the sphenoethmoid region with significant bony destruction, concerning for malignancy. Follow-up contrast-enhanced cross-sectional imaging, MRI versus CT will better characterize. 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 Severe central bony spinal canal stenosis at the C3-C4 level secondary to posterior disc osteophyte formation and retrolisthesis of C3 on C4 of approximately 5 mm with apparent cord impingement. Electronically Signed: Ajay Arzate MD at 3:43 EST ,
== END | disposition home or self-care (01) ==
LOC: CT 16:37
PROVIDERS: PCP Student in an Organized Health Care Education/Training Program; Referring Provider Otolaryngology; Visit Provider Otolaryngology
DX: J32.8 Other chronic sinusitis (principal); J33.0 Polyp of nasal cavity
CPT/HCPCS: 70486